=== PATIENT | male | born 1960 | race Two or more races ===

== ENCOUNTER 2021-12-24 21:41 | Inpatient (IN) | payer MEDICAID ==
[~2021-12-24] VITALS: Ht 160 cm; Wt 75.7 kg
[2021-12-24 23:00] VITALS: BP 138/62
--- NOTE | 2021-12-24 23:00 | NUR ---
RN RECEIVING NOTE PATIENT RECEIVED A TRANSFER FROM [place]. RECEIVED REPORT FROM RN, AMANDEEP, OF [place]. ROMANSH SPEAKING WITH THE ABILITY TO COMMUNICATE AND UNDERSTAND A FAIR AMOUNT OF [place]. PATIENT IS AOX4. NO S/S OF DISTRESS, BREATHING SYMMETRICAL. RFA #20 SL INTACT AND PATENT. PATIENT'S SKIN INTACT. NO IMPAIRMENTS NOTED. ABLE TO AMBULATE W/ STEADY GAIT. VS WNL: T 98.5, HR 64, R 18, BP 138/62. PATIENT STATED HE HAS NO PAIN. PATIENT IS KEPT NPO FOR NOW PER MD ORDER. SEAFOOD PROCESS WORKER CHECKED AND LOGGED HIS BELONGINGS INTO HIS CHART. PATIENT WAS ORIENTED TO THE UNIT, AND GIVEN INSTRUCTION GROUP CARE WORKER TALLEY USE. PATIENT PRESENTS IN A CALM AND PLEASANT DEMEANOR. PATIENT SPOKE WITH HIS FAMILY. BED AT LOWEST POSITION, RAILS UP X2, CALL TALLEY WITHIN REACH. WILL CONTINUE TO MONITOR PATIENT.
[2021-12-25] MEDS ORDERED: MORPHINE SULFATE INJ 2 MG/ML DISP.SYRIN IV PRN (01:00)
[2021-12-25] MEDS ORDERED: ONDANSETRON HCL/PF 4 MG/2 ML VIAL IVP PRN (01:00)
[2021-12-25] MEDS ORDERED: IV NS 0.9% 1,000 ML IV PRN (01:00)
[2021-12-25] MEDS ORDERED: Z GUARD REMEDY 4 OZ OINT TP PRN (01:00)
[2021-12-25] MEDS ORDERED: MAG HYDROX/AL HYDROX/SIMETH 30 ML UDC PO PRN (01:00)
--- NOTE | 2021-12-25 06:02 | NUR ---
DIVINITY PROFESSOR (PAUL) NOTIFIED VIA TEXT IN REGARDS TO [facility].
[2021-12-25 06:26] LABS: BASOPHILS # (AUTO) 0.1 K/uL (0.0-0.2); BASOPHILS % (AUTO) 0.8 % (0.0-2.0); EOSINOPHILS % (AUTO) 2.8 % (0.0-6.0); HEMATOCRIT 41 % (39-51); HEMOGLOBIN 14.3 g/dL (13.5-17.5); LYMPHOCYTES # (AUTO) 1.1 K/uL (0.8-4.8); LYMPHOCYTES % (AUTO) 14.7 % (20.0-44.0); MEAN CORPUSCULAR HGB CONC 35 g/dl (31.0-36.0); MEAN CORPUSCULAR VOLUME 92 fL (80-96); MONOCYTES # (AUTO) 0.4 K/uL (0.1-1.30); MONOCYTES % (AUTO) 5.9 % (2.0-12.0); NEUTROPHILS # (AUTO) 5.5 K/uL (1.8-8.9); NEUTROPHILS % (AUTO) 75.8 % (43.0-81.0); PLATELET COUNT (AUTO) 278 K/uL (150-450); RED BLOOD CELL COUNT(AUTO) 4.49 MIL/uL (4.5-6.0); WHITE BLOOD COUNT (AUTO) 7.2 K/uL (4.3-11.0)
--- NOTE | 2021-12-25 06:57 | NUR ---
MS RN CLOSING NOTE PATIENT ASLEEP IN BED. A/OX4, TURKS AND [place] SPEAKING MOSTLY, BUT IS ABLE TO COMPREHEND [place]LL SPEAK IT. NO S/S OF DISTRESS, BREATHING SYMMETRICAL. RAC #20 INTACT AND PATENT RUNNING W/ NS 75ML/HR. SAFETY MEASURES IN PLACE: BED AT LOWEST POSITION, RAILS UP X2, CALL TALLEY WITHIN REACH. WILL ENDORSE TO FOLLOWING SHIFT FOR WESLY.
[2021-12-25 08:00] VITALS: BP 141/80
[2021-12-25 08:28] LABS: CALCIUM, SERUM 8.5 mg/dL (8.5-10.1); CREATININE 0.8 mg/dL (0.6-1.3); MAGNESIUM 2.4 mg/dL (1.8-2.4); PHOSPHORUS 3.6 mg/dL (2.5-4.9); POTASSIUM 3.5 mmol/L (3.5-5.1)
[2021-12-25] MEDS ORDERED: ENOXAPARIN SODIUM 40 MG/0.4 ML DISP.SYRIN SQ SCH (09:00)
[2021-12-25] MEDS ORDERED: PANTOPRAZOLE 40 MG VIAL IV SCH (09:00)
[2021-12-25] MEDS ORDERED: LEVOFLOXACIN 500 MG /D5W 100ML 500 MG in PREMIX 1 EA IV SCH (09:00)
[2021-12-25 09:38] LABS: ALBUMIN 3.7 g/dL (3.4-5.0); BILIRUBIN,DIRECT 0.2 mg/dL (0.0-0.2); BILIRUBIN,TOTAL 0.9 mg/dL (0.2-1.0)
[2021-12-25 16:00] VITALS: BP 142/71
--- NOTE | 2021-12-25 18:15 | NUR ---
GPS/RN PT LEFT HOSPITAL AMA. PROPERTY RETURNED, ID BAND AND H/L REMOVED. DR STORY NOTIFIED. PT IS AMBULATORY AND WAS ACCOMPANIED TO THE LOBBY.
== END 2021-12-25 18:24 | disposition left against medical advice (07) ==
LOC: MED 23:00
PROVIDERS: ADMIT Internal Medicine; ATTEND Internal Medicine
DX: K80.10 Calculus of gallbladder with chronic cholecystitis without obstruction (principal); K65.9 Peritonitis, unspecified; Z87.19 Personal history of other diseases of the digestive system
CPT/HCPCS: 36415; 74181-TC; 76700-TC; 80048-TC; 80061-TC; 80076-TC; 83735-TC; 84100-TC; 85025-TC; 87081-TC; A4216; C9113; G0378; J1650; J1956; J7030